=== PATIENT | female | born 1945 | race Two or more races ===

== ENCOUNTER 2018-03-20 09:43 | Outpatient (CLI) | payer OTHER | END 2018-03-20 09:52 | disposition home or self-care (01) | LOC: NUCLEAR 09:43 | DX: E21.2 Other hyperparathyroidism (principal) | CPT/HCPCS: 78070; A9500 ==

== ENCOUNTER 2018-07-26 09:29 | Outpatient (CLI) | payer OTHER | END 2018-07-26 09:36 | disposition home or self-care (01) | LOC: NUCLEAR 09:29 | DX: M85.89 Other specified disorders of bone density and structure, multiple sites (principal); M81.0 Age-related osteoporosis without current pathological fracture ==

== ENCOUNTER 2019-08-19 10:16 | Outpatient (CLI) | payer OTHER | END 2019-08-19 11:00 | disposition home or self-care (01) | LOC: NUCLEAR 10:16 | DX: M81.0 Age-related osteoporosis without current pathological fracture (principal); M85.88 Other specified disorders of bone density and structure, other site ==

== ENCOUNTER 2021-02-15 13:12 | Outpatient (CLI) | payer OTHER | END 2021-02-17 07:56 | disposition home or self-care (01) | LOC: NUCLEAR 13:12 | PROVIDERS: ATTEND Internal Medicine Rheumatology | DX: M81.0 Age-related osteoporosis without current pathological fracture (principal) ==

== ENCOUNTER 2022-02-17 11:31 | Outpatient (CLI) | payer OTHER | END 2022-02-17 11:34 | disposition home or self-care (01) | LOC: NUCLEAR 11:31 | PROVIDERS: ATTEND Internal Medicine Rheumatology | DX: M81.0 Age-related osteoporosis without current pathological fracture (principal) ==

== ENCOUNTER 2022-08-16 08:59 | Outpatient (CLI) | payer OTHER | END 2022-08-16 09:02 | disposition home or self-care (01) | LOC: NUCLEAR 08:59 | PROVIDERS: ATTEND Internal Medicine Cardiovascular Disease | DX: I11.9 Hypertensive heart disease without heart failure (principal) ==

== ENCOUNTER → 2022-09-06 | Outpatient (CLI) | payer OTHER | END | disposition home or self-care (01) | LOC: NUCLEAR 08-12 07:00 | PROVIDERS: ATTEND Internal Medicine Cardiovascular Disease | DX: I11.9 Hypertensive heart disease without heart failure (principal); I20.8 Other forms of angina pectoris | CPT/HCPCS: 78452; 93017; A9500 ==

== ENCOUNTER 2023-02-21 13:10 | Outpatient (CLI) | payer OTHER | END 2023-02-21 13:11 | disposition home or self-care (01) | LOC: NUCLEAR 13:10 | PROVIDERS: ATTEND Internal Medicine Rheumatology | DX: M81.0 Age-related osteoporosis without current pathological fracture (principal) ==